=== PATIENT | male | born 1995 | race Asian ===

== ENCOUNTER 2017-07-13 21:13 | Emergency (ER) | payer OTHER ==
[~2017-07-13] VITALS: Ht 177.8 cm; Wt 55.2 kg
[2017-07-13 21:22] VITALS: Ht 177.8 cm; Wt 55.2 kg
[2017-07-13] MEDS ORDERED: IBUPROFEN 800 MG TAB PO STA (21:27)
[2017-07-13] MEDS ORDERED: ACETAMINOPHEN 500 MG TAB PO STA (21:27)
[2017-07-13 22:06] LABS: INFLUENZA B ANTIGEN Neg for Influ B (NEG)
[2017-07-13 22:19] VITALS: BP 129/97; PULSE 108; TEMP 38.2; O2SAT 98
--- NOTE | 2017-07-13 22:25 | EMERGENCY ROOM VISIT NOTE ---
History First contact with patient: 21:26 Chief Complaint: FEVER Stated Complaint: HIGH FEVER History of Present Illness The patient is a 22 year old male who presents to the Emergency Room with complaints of fever, cough, congestion, sore throat for the past day. Patient just flew back from [place] he's been around other sick people. No flu shot. Patient denies chest pain, dyspnea, neck status, abdominal pain, vomiting, diarrhea. He is tolerating by mouth fluids and food. He has not taken any Tylenol or Motrin today.. Review of Systems See HPI for pertinent positives & negatives. A total of 10 systems reviewed and were otherwise negative. Past Medical/Surgical History none Social History Smoking Status: Never Smoker Smokeless Tobacco Use: No Drug Use: none Marital Status: single Occupation Status: [employer] student Current/Historical Medications No Active Prescriptions or Reported Meds Physical Exam Vital Signs Date Time Temp Pulse Resp B/P (MAP) Pulse Ox O2 Delivery O2 Flow Rate FiO2 07/13/17 22:19 38.2 108 16 129/97 98 07/13/17 21:22 38.6 123 18 125/55 100 Room Air Physical Exam VITALS: Vitals are noted on the nurse's note and reviewed by myself. Vital signs febrile. GENERAL: Pleasant male, in no acute distress, nondiaphoretic, well-developed well-nourished. SKIN: The skin was without rashes, erythema, edema, or bruising. There is no tenting of the skin. Capillary reflex less than 2 seconds. HEAD: Normocephalic atraumatic. EARS: External auditory canals clear, tympanic membranes pearly ruelas without erythema or effusion bilaterally. EYES: Pupils equal round and reactive to light and accommodation. Conjunctivae without injection, sclerae without icterus. Extraocular movements intact. NOSE: Patent, turbinates without inflammation or discharge. No sinus tenderness. MOUTH: Mucous membranes mildly dry. Pharynx without erythema or exudate. Uvula midline. Airway patent. Tongue does not deviate. NECK: Supple without nuchal rigidity. No lymphadenopathy. No thyromegaly. Cervical spine is nontender. No JVD. HEART: Regular rate and rhythm without murmurs gallops or rubs. LUNGS: Clear to auscultation bilaterally without wheezes, rales or rhonchi. No dullness to percussion. No retractions or accessory muscle use. ABDOMEN: Positive bowel sounds x 4. Normal tympanic percussion. Soft, nontender, without masses or organomegaly. Whiteside sign negative. No guarding or rebound tenderness. MUSCULOSKELETAL: No muscle atrophy, erythema, or edema noted. NEURO: Patient was alert and oriented to person place and time. Normal sensation to light and sharp touch. No focal neurological deficits. Medical Decision & Procedures Laboratory Results Test 07/13/17 21:35 Influenza Type A Antigen POS for Influ A (NEG) Influenza Type B Antigen Neg for Influ B (NEG) Medications Administered Medications (Trade) Dose Ordered Sig/[place] Route Start Time Stop Time Status Last Admin Dose Admin Acetaminophen (Tylenol Tab) 1,000 mg NOW STAT PO 07/13/17 21:27 07/13/17 21:28 DC 07/13/17 21:36 1,000 MG Ibuprofen (Motrin Tab) 800 mg NOW STAT PO 07/13/17 21:27 07/13/17 21:28 DC 07/13/17 21:37 800 MG ED Course Prior records/ancillary studies reviewed. Triage Nursing notes reviewed. Additional history obtained from friends. The patient's history was concerning for fever. Differential diagnosis: Etiologies such as viral syndrome, otitis, pharyngitis, pneumonia, influenza, meningitis, urinary tract infection, sepsis, bacteremia, as well as others were entertained. Physical examination: Patient is alert, interactive and tolerating fluids ER treatment provided: Tylenol, Motrin, Gatorade On reassessment the patient felt better. Diagnostics interpreted by me: The labs revealed positive flu This appears to be consistent with Influenza. Patient was neurovascularly and neurologically intact. No signs of meningitis or airway comprise. He was counseled on supportive care and advised to stay home until 24 hours fever free as he is highly contagious. He is advised follow-up ulcers a few days here in the ER sooner for high fevers, lethargy, neck stiffness, worsening signs or symptoms or as needed. By the evaluation outlined above emergent etiologies such as otitis, pharyngitis , pneumonia, meningitis, urinary tract infection, sepsis, bacteremia, as well as others were deemed relatively unlikely. The pt informed about the findings as listed above. All questions were answered and pleased with the treatment. Return instructions were outlined and the patient was discharged in stable condition. Referral: The patient was referred back to their primary care physician for follow-up in 2 to 3 days for a recheck of the current condition. Medical Decision As above Medication Reconcilliation Current Medication List: was personally reviewed by me Blood Pressure Screening Patient's blood pressure: Normal blood pressure Impression Primary Impression: Influenza A Departure Information Dispostion Home / Self-Care Condition GOOD Prescriptions No Active Prescriptions or Reported Meds Referrals No Doctor, Assigned (PCP) Patient Instructions My [facility]
== END 2017-07-13 22:25 | disposition home or self-care (01) ==
LOC: C.EDB 21:14 → C.EDC 22:25
DX: J11.1 Influenza due to unidentified influenza virus with other respiratory manifestations (principal)

== ENCOUNTER 2017-07-16 21:16 | Emergency (ER) | payer OTHER ==
[~2017-07-16] VITALS: Ht 170.2 cm; Wt 55.6 kg
[2017-07-16 21:22] VITALS: BP 121/80; PULSE 84; TEMP 36.6; O2SAT 99; Ht 170.2 cm; Wt 55.6 kg
[2017-07-16] MEDS ORDERED: AMOX500C3 PO (21:48)
--- NOTE | 2017-07-16 21:50 | EMERGENCY ROOM VISIT NOTE ---
History First contact with patient: 21:33 Chief Complaint: FEVER Stated Complaint: WAS TOLD BY DR TO RETURN IF FEVER COMES BACK History of Present Illness The patient is a 22 year old male who presents to the Emergency Room with complaints of persistent fever for the last 3 days. The patient was here 3 days ago. He was diagnosed with influenza A. He has been taking ibuprofen with moderate relief of the fever. His last dose of ibuprofen was at 6 PM today. He is feeling better. He does describe a fairly severe sore throat. He denies any shortness of breath. He is complaining of a mild nonproductive cough and body aches. The patient thinks that he may have tonsillitis. In [place], he is typically treated with antibiotics for this. Review of Systems 10 system review performed and negative unless noted in HPI or below Past Medical/Surgical History Otherwise healthy Social History Smoking Status: Current Every Day Smoker Drug Use: none Marital Status: single Occupation Status: [employer] student Current/Historical Medications Scheduled Amoxicillin (Amoxil), 500 MG PO TID Physical Exam Vital Signs Date Time Temp Pulse Resp B/P (MAP) Pulse Ox O2 Delivery O2 Flow Rate FiO2 07/16/17 21:22 36.6 84 18 121/80 99 Room Air Physical Exam VITALS: Vitals are noted on the nurse's note and reviewed by myself. Vital signs stable. GENERAL: 22-year-old male, in no acute distress, nondiaphoretic, well-developed well-nourished. SKIN: The skin was without rashes, erythema, edema, or bruising. HEAD: Normocephalic atraumatic. EYES:Conjunctivae without injection, sclerae without icterus. Extraocular movements intact. NOSE: Patent, turbinates without inflammation or discharge. No sinus tenderness. MOUTH: Mucous membranes moist. Are mildly enlarged and erythematous. No exudate bilaterally. Pharynx without erythema or exudate. Uvula midline. Airway patent. Tongue does not deviate. NECK: Supple without nuchal rigidity. Lymphadenopathy noted in the posterior cervical chain. Cervical spine is nontender. No JVD. HEART: Regular rate and rhythm without murmurs gallops or rubs. LUNGS: Clear to auscultation bilaterally without wheezes, rales or rhonchi. No accessory muscle use. MUSCULOSKELETAL: No muscle atrophy, erythema, or edema noted. Strength 5/5 throughout. NEURO: Patient was alert and oriented to person place and time. Normal sensation to touch. No focal neurological deficits. Medical Decision & Procedures ED Course The patient was seen and examined We discussed treatment options. We also discussed the diagnosis of influenza as it is a virus Discharge instructions were provided, and the patient was discharged in good condition Medical Decision Differential diagnosis: Bronchitis, pneumonia, strep pharyngitis, viral pharyngitis, influenza This patient is a 22-year-old male that returns to the emergency department complaining of a continued fever. His temperature was 38.2 Celsius today. He took ibuprofen with good symptomatic relief. He has a known diagnosis of influenza A. On exam, the patient is nontoxic in appearance. No signs of peritonsillar abscess. His lungs are clear. Vital signs stable. The patient is fairly convinced that he has tonsillitis, and is requesting antibiotic. I discussed at this point, that an antibiotic will not cure his diagnosis of influenza. I also encouraged him to drink plenty of fluids and take Tylenol and ibuprofen for pain. He refuses to take Tylenol, as he was taught in his culture that this could harm his body. After a long discussion, the patient was provided a prescription for amoxicillin. He was instructed to start this only if his temperature climbed to 39F and he developed much more pain in his throat. He voiced understanding. This chart was completed in part utilizing [employer] Speech Voice Recognition software. Attempts were made to minimize the grammatical errors, random word insertions, pronoun errors and incomplete sentences. Any formal questions or concerns about the content, text or information contained within the body of this dictation should be directly addressed to the provider for clarification. Impression Primary Impression: Fever Departure Information Dispostion Home / Self-Care Condition GOOD Prescriptions Amoxicillin (AMOXIL) 500 Mg Cap 500 MG PO TID for 10 Days, #30 CAP Prov: Estella Cary PA-C 07/16/17 Referrals [facility] (PCP) Patient Instructions My [facility] Additional Instructions You were seen in the emergency department for fever. You also have been given a diagnosis of influenza a. This is a virus. Antibiotics will not cure a virus. If you're tonsils are getting significantly more painful or the fever is as high as 39F, please begin amoxicillin and finish the entire course Ibuprofen 800 mg and/or Tylenol 1000 mg every 8 hours for pain or fever control You may also alternate these medications for more effective pain relief: Ibuprofen --4 HRS--> Tylenol --4 HRS--> ibuprofen --4 HRS--> Tylenol .... Follow-up with [facility] within the next week for a recheck You may return to the emergency department with any worsening or concerning symptoms.
== END 2017-07-16 22:00 | disposition home or self-care (01) ==
LOC: C.EDB 21:17 → C.EDD 22:00
DX: R50.9 Fever, unspecified (principal); F17.200 Nicotine dependence, unspecified, uncomplicated